=== PATIENT | male | born 1970 | race Caucasian/White ===

== ENCOUNTER 2022-07-30 09:06 | Outpatient (CLI) | payer BC, SELFPAY ==
--- NOTE | ~2022-07-30 | US_ITS ---
EXAMINATION: US biopsy lymph node DATE: 07/30/2022 09:57 INDICATION: Left neck mass. TECHNIQUE: The procedure including the risks, benefits, and alternatives was discussed with the patie nt. Risks discussed included bleeding and infection. The patient understood the risks and agreed to p roceed. The skin overlying the left neck was prepped and draped in usual sterile fashion. Anesthetic was administered with 1% lidocaine subcutaneously. An 18 gauge core biopsy needle was then used to obtain 3 core biopsy specimens under continuous sonographic guidance. The entry site was cleaned and dressed. There were no immediate complications. FINDINGS: Ultrasound images demonstrate the needle in a 6.3 x 3.7 x 5.9 cm necrotic left high interna l jugular chain lymph node. IMPRESSION: 1. Ultrasound-guided core needle biopsy of a necrotic enlarged left high internal jugular chain lymph node. Reviewed, dictated and finalized at location A. IMPRESSION: 1. 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
== END 2022-07-30 09:07 | disposition home or self-care (01) ==
LOC: ANHIMG 09:15
PROVIDERS: PCP Nurse Practitioner Family
DX: R22.1 Localized swelling, mass and lump, neck (principal); C77.0 Secondary and unspecified malignant neoplasm of lymph nodes of head, face and neck
CPT/HCPCS: 38505; 76942; 88305; 88342